=== PATIENT | female | born 1980 | race Caucasian/White ===

== ENCOUNTER 2018-02-04 14:28 | Emergency (ER) | payer SELFPAY ==
[2018-02-04] MEDS ORDERED: DIPHENHYDRAMINE 25 MG TAB/CAP ONE (15:16)
[2018-02-04] MEDS ORDERED: FAMOTIDINE 20 MG TAB ONE (15:17)
[2018-02-04] MEDS ORDERED: predniSONE 20 MG TAB ONE (15:17)
--- NOTE | 2018-02-04 15:28 | EDPHYS ---
Physician Documentation [facility] Name: Rachana Padilla Age: 37 yrs Sex: Female : 1980 Arrival Date: 02/04/2018 Time: 14:33 Bed 14 Private MD: ED Physician Mauro French HPI: 02/04 14:48 This 37 yrs old Female presents to ER via Ambulatory with complaints of kb Insect Bite. 14:48 the patient presents with a swollen area of the anterior aspect of left shoulder. kb Description: erythematous, hot, swollen. Onset: The symptoms/episode began/occurred at 13:00. Possible cause(s): insect sting. Associated signs and symptoms: Pertinent positives: erythema, swelling, Pertinent negatives: discharge, drainage, foreign body sensation, fever, headache, nausea, shortness of breath, vomiting. Modifying factors: the symptoms are alleviated by nothing, the symptoms are aggravated by nothing. Severity of symptoms: At their worst the symptoms were moderate, in the emergency department the symptoms have improved, moderately. The patient has not experienced similar symptoms in the past. The patient has not recently seen a physician. Pt states she got into her car and felt like she got bit or stung by something on her left upper arm. Had redness, swelling, warmth and pain to entire arm after that. States pain has resolved since then. Redness, swelling and warmth have decreased moderately. . 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 - Social history:: Smoking status: Patient uses tobacco products, smokes one pack cigarettes per day. Patient uses alcohol, only on a social basis. - Ebola Screening: : Patient negative for fever greater than or equal to 101.5 degrees Fahrenheit, and additional compatible Ebola Virus Disease symptoms Patient denies exposure to infectious person Patient denies travel to an Ebola-affected area in the 21 days before illness onset. ROS: 14:46 Constitutional: Negative for fever, chills, and weight loss, Cardiovascular: Negative kb for chest pain, palpitations, and edema, Respiratory: Negative for shortness of breath, cough, wheezing, and pleuritic chest pain, Abdomen/GI: Negative for abdominal pain, nausea, vomiting, diarrhea, and constipation, Back: Negative for injury and pain, : Negative for injury, bleeding, discharge, and swelling, MS/Extremity: Negative for injury and deformity, Neuro: Negative for headache, weakness, numbness, tingling, and seizure. 14:46 Skin: Positive for erythema, swelling, of the anterior aspect of left shoulder. Exam: 14:46 Constitutional: This is a well developed, well nourished patient who is awake, alert, kb and in no acute distress. Head/Face: Normocephalic, atraumatic. Chest/axilla: Normal chest wall appearance and motion. Nontender with no deformity. No lesions are appreciated. Cardiovascular: Regular rate and rhythm with a normal S1 and S2. No gallops, murmurs, or rubs. Normal PMI, no JVD. No pulse deficits. Respiratory: Lungs have equal breath sounds bilaterally, clear to auscultation and percussion. No rales, rhonchi or wheezes noted. No increased work of breathing, no retractions or nasal flaring. Abdomen/GI: Soft, non-tender, with normal bowel sounds. No distension or tympany. No guarding or rebound. No evidence of tenderness throughout. MS/ Extremity: Pulses equal, no cyanosis. Neurovascular intact. Full, normal range of motion. Neuro: Awake and alert, GCS 15, oriented to person, place, time, and situation. Cranial nerves II-XII grossly intact. Motor strength 5/5 in all extremities. Sensory grossly intact. Cerebellar exam normal. Normal gait. 14:46 Skin: Appearance: normal except for affected area, Color: erythematous, Temperature: hot, swelling, noted on the anterior aspect of left shoulder, that are mild. Vital Signs: 14:37 BP 127 / 84; Pulse 90; Resp 18; Temp 97.4(TE); Pulse Ox 100% on R/A; Weight 71.21 kg; hj Height 5 ft. 6 in. (167.64 cm); Pain 5/10; 14:37 Body Mass Index 25.34 (71.21 kg, 167.64 cm) MDM: 14:39 Patient medically screened. kb 14:47 Data reviewed: vital signs, nurses notes. Data interpreted: Pulse oximetry: on room air kb is 100 %. Interpretation: normal. Counseling: I had a detailed discussion with the patient and/or guardian regarding: the historical points, exam findings, and any diagnostic results supporting the discharge/admit diagnosis, the need for outpatient follow up, a family practitioner, to return to the emergency department if symptoms worsen or persist or if there are any questions or concerns that arise at home. Administered Medications: 15:05 Drug: predniSONE 40 mg Route: PO; bp 15:35 Follow up: Response: Marked relief of symptoms bp 15:05 Drug: Pepcid 20 mg Route: PO; bp 15:34 Follow up: Response: Marked relief of symptoms bp 15:05 Drug: Benadryl 25 mg Route: PO; bp 15:33 Follow up: Response: No adverse reaction; Marked relief of symptoms bp Disposition: 02/05 07:07 Co-signature as Attending Physician, Mauro French MD I agree with the assessment and wilbur plan of care. Disposition: 02/04/18 15:27 Discharged to Home. Impression: Bitten or stung by nonvenomous insect and other nonvenomous arthropods. - Condition is Stable. - Discharge Instructions: Insect Bite, [id number]. - Prescriptions for Pepcid 20 mg Oral Tablet - take 1 tablet by ORAL route every 12 hours for 5 days; 10 tablet. Prednisone 20 mg Oral Tablet - take 1 tablet by ORAL route once daily for 5 days; 5 tablet. - Medication Reconciliation Form, Thank You Letter, Antibiotic Education, Prescription Opioid Use, Work release form form. - Follow up: Emergency Department; When: As needed; Reason: Worsening of condition. Follow up: Private Physician; When: 2 - 3 days; Reason: Recheck today's complaints, Continuance of care, Re-evaluation by your physician. Signatures: Margret Cervantes, NARDA-C SURGERY CONSULTANT-Mauro Reeves MD MD cha Joaquin, Henry, RN RN hj Peltier, Brian, RN RN bp Corrections: (The following items were deleted from the chart) 02/04 15:37 15:27 02/04/2018 15:27 Discharged to Home. Impression: Bitten or stung by nonvenomous bp insect and other nonvenomous arthropods. Condition is Stable. Discharge Instructions: Insect Bite, [id number]. Prescriptions for Pepcid 20 mg Oral Tablet - take 1 tablet by ORAL route every 12 hours for 5 days; 10 tablet, Prednisone 20 mg Oral Tablet - take 1 tablet by ORAL route once daily for 5 days; 5 tablet. and Forms are Medication Reconciliation Form, Thank You Letter, Antibiotic Education, Prescription Opioid Use. Follow up: Emergency Department; When: As needed; Reason: Worsening of condition. Follow up: Private Physician; When: 2 - 3 days; Reason: Recheck today's complaints, Continuance of care, Re-evaluation by your physician. kb
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
[2018-02-04 15:50] VITALS: BP 127/84; TEMP 97.4; O2SAT 100
== END 2018-02-04 15:37 | disposition home or self-care (01) ==
LOC: ER 14:28
DX: S40.262A Insect bite (nonvenomous) of left shoulder, initial encounter (principal); F17.210 Nicotine dependence, cigarettes, uncomplicated
CPT/HCPCS: 99283; J7512

== ENCOUNTER 2018-09-16 22:02 | Emergency (ER) | payer SELFPAY ==
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
[2018-09-16] MEDS ORDERED: HYDROCODONE/APAP 10/325 TAB ONE (23:33)
[2018-09-16] MEDS ORDERED: TETANUS & DIPHTHERIA TOX,ADULT 0.5 ML VIAL ONE (23:33)
[2018-09-17 04:57] VITALS: BP 125/89; TEMP 98.1; O2SAT 100
== END 2018-09-16 23:33 | disposition home or self-care (01) ==
LOC: ER 22:02
DX: L23.5 Allergic contact dermatitis due to other chemical products (principal); F17.210 Nicotine dependence, cigarettes, uncomplicated; Z23 Encounter for immunization
CPT/HCPCS: 90471; 90714; 99283

== ENCOUNTER 2019-01-05 05:08 | Emergency (ER) | payer SELFPAY ==
--- NOTE | 2019-01-05 06:32 | ER ---
Nurse's Notes [facility] Name: Rachana Padilla Age: 38 yrs Sex: Female : 1980 Arrival Date: 01/05/2019 Time: 05:09 Bed 19 Private MD: Diagnosis: Rash and other nonspecific skin eruption Presentation: 01/05 05:25 Presenting complaint: Patient states: "Since 2 weeks I've been having this generalized cc3 itchy rash all over my body. 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 I don't even remember changing detergents nor body soap to have this". Transition of care: patient was not received from another setting of care. Onset of symptoms was January 05, 2019. Risk Assessment: Do you want to hurt yourself or someone else? Patient reports no desire to harm self or others. Initial Sepsis Screen: Does the patient meet any 2 criteria? No. Patient's initial sepsis screen is negative. Does the patient have a suspected source of infection? No. Patient's initial sepsis screen is negative. Care prior to arrival: Medication(s) given: anti-itch topical creams. 05:25 Method Of Arrival: Ambulatory cc3 05:25 Acuity: ROMIE 4 cc3 Triage Assessment: 05:25 General: Appears in no apparent distress. comfortable, Behavior is calm, cooperative, cc3 appropriate for age. Pain: Denies pain. EENT: No signs and/or symptoms were reported regarding the EENT system. Neuro: Level of Consciousness is awake, alert, obeys commands, Oriented to person, place, time, situation, Appropriate for age. Cardiovascular: Denies chest pain, Capillary refill < 3 seconds Patient's skin is warm and dry. Respiratory: Airway is patent Respiratory effort is even, unlabored, Respiratory pattern is regular, symmetrical. GI: Abdomen is round non-distended. : No signs and/or symptoms were reported regarding the genitourinary system. Derm: Skin is intact, is healthy with good turgor, Skin is pink, warm \\T\\ dry. normal, Rash noted that is itchy, on generalized since 2 weeks. Musculoskeletal: Circulation, motion, and sensation intact. Range of motion: intact in all extremities. 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 - Social history:: Smoking status: Patient uses tobacco products, smokes one-half pack cigarettes per day. - Ebola Screening: : No symptoms or risks identified at this time. Screenin:25 Abuse screen: Denies threats or abuse. Denies injuries from another. Nutritional cc3 screening: No deficits noted. Tuberculosis screening: No symptoms or risk factors identified. Fall Risk Ambulatory Aid- None/Bed Rest/Nurse Assist (0 pts). Gait- Normal/Bed Rest/Wheelchair (0 pts) Mental Status- Oriented to own ability (0 pts). Assessment: 05:25 General: see triage assessment. cc3 06:57 Reassessment: Patient appears in no apparent distress at this time. Patient and/or cc3 family updated on plan of care and expected duration. Pain level reassessed. Patient is alert, oriented x 3, equal unlabored respirations, skin warm/dry/pink. SERVICES HOST Ayse discharged the patient home with prescriptions given. IV cannula removed and patient left Er vitally stable and ambulatory with her family. No valuables left in the patient's room. Patient denies pain at this time. Patient states feeling better. Patient states symptoms have improved. Vital Signs: 05:25 BP 110 / 77; Pulse 90; Resp 18 S; Temp 98.3(O); Pulse Ox 100% on R/A; Weight 69.4 kg cc3 (R); Height 5 ft. 6 in. (167.64 cm) (R); 05:25 Body Mass Index 24.69 (69.40 kg, 167.64 cm) cc3 ED Course: 05:09 Patient arrived in ED. ds1 05:22 Tegan Olmos is Primary Nurse. cc3 05:25 Patient has correct armband on for positive identification. Bed in low position. Call cc3 light in reach. Side rails up X 1. Pulse ox on. NIBP on. 05:25 Arm band placed on right wrist. Patient notified of wait time. cc3 05:38 Triage completed. cc3 05:59 Ulises Tavera NP is PHCP. pm1 05:59 Miguel Hummel MD is Attending Physician. pm1 06:35 Inserted saline lock: 20 gauge in left antecubital area, using aseptic technique. cc3 06:57 No provider procedures requiring assistance completed. IV discontinued, intact, cc3 bleeding controlled, No redness/swelling at site. Pressure dressing applied. Administered Medications: 06:40 CANCELLED (Other Intervention Used): Decadron 10 mg IM once cc3 06:40 Drug: Benadryl 25 mg Route: PO; cc3 06:57 Follow up: Response: No adverse reaction cc3 06:40 Drug: Pepcid 20 mg Route: PO; cc3 06:57 Follow up: Response: No adverse reaction cc3 06:45 Drug: Decadron - Dexamethasone 10 mg Route: IVP; Site: left antecubital; cc3 06:57 Follow up: Response: No adverse reaction; Marked relief of symptoms cc3 Outcome: 06:31 Discharge ordered by . pm1 06:57 Patient left the ED. cc3 06:57 Discharged to home ambulatory, with family. cc3 06:57 Condition: stable 06:57 Discharge instructions given to patient, family, Instructed on discharge instructions, follow up and referral plans. medication usage, Demonstrated understanding of instructions, follow-up care, medications, Prescriptions given X 3. Signatures: Annie Montiel ds1 Ulises Tavera NP SERVICES HOST pm1 Tegan Olmos cc3
--- NOTE | 2019-01-05 06:32 | EDPHYS ---
Physician Documentation [facility] Name: Rachana Padilla Age: 38 yrs Sex: Female : 1980 Arrival Date: 01/05/2019 Time: 05:09 Bed 19 Private MD: ED Physician Miguel Hummel HPI: 01/05 06:30 This 38 yrs old Female presents to ER via Ambulatory with complaints of Rash. pm1 06:30 The patient's rash thought to be caused by Contact allergy. The rash is located on the pm1 body diffusely. The rash can be described as macular, papular. Onset: The symptoms/episode began/occurred 1 week(s) ago. Associated signs and symptoms: Pertinent positives: itching, Pertinent negatives: burning sensation, difficulty breathing, fever, nausea, swelling of lips, swelling of throat, swelling of tongue, vomiting, wheezing. Severity of symptoms: in the emergency department the symptoms are worse. Treatment given at home: None. The patient has not experienced similar symptoms in the past. The patient has not recently seen a physician. 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 - Social history:: Smoking status: Patient uses tobacco products, smokes one-half pack cigarettes per day. - Ebola Screening: : No symptoms or risks identified at this time. ROS: 06:30 Constitutional: Negative for fever, chills, and weight loss, Eyes: Negative for injury, pm1 pain, redness, and discharge, ENT: Negative for injury, pain, and discharge, Neck: Negative for injury, pain, and swelling, Cardiovascular: Negative for chest pain, palpitations, and edema, Respiratory: Negative for shortness of breath, cough, wheezing, and pleuritic chest pain, Abdomen/GI: Negative for abdominal pain, nausea, vomiting, diarrhea, and constipation, Back: Negative for injury and pain, : Negative for injury, bleeding, discharge, and swelling, MS/Extremity: Negative for injury and deformity. 06:30 Neuro: Negative for headache, weakness, numbness, tingling, and seizure. 06:30 Skin: Positive for rash, diffusely. Exam: 06:30 Constitutional: This is a well developed, well nourished patient who is awake, alert, pm1 and in no acute distress. Head/Face: Normocephalic, atraumatic. Eyes: Pupils equal round and reactive to light, extra-ocular motions intact. Lids and lashes normal. Conjunctiva and sclera are non-icteric and not injected. Cornea within normal limits. Periorbital areas with no swelling, redness, or edema. ENT: Nares patent. No nasal discharge, no septal abnormalities noted. Tympanic membranes are normal and external auditory canals are clear. Oropharynx with no redness, swelling, or masses, exudates, or evidence of obstruction, uvula midline. Mucous membranes moist. Neck: Trachea midline, no thyromegaly or masses palpated, and no cervical lymphadenopathy. Supple, full range of motion without nuchal rigidity, or vertebral point tenderness. No Meningismus. Chest/axilla: Normal chest wall appearance and motion. Nontender with no deformity. No lesions are appreciated. Cardiovascular: Regular rate and rhythm with a normal S1 and S2. No gallops, murmurs, or rubs. Normal PMI, no JVD. No pulse deficits. Respiratory: Lungs have equal breath sounds bilaterally, clear to auscultation and percussion. No rales, rhonchi or wheezes noted. No increased work of breathing, no retractions or nasal flaring. Back: No spinal tenderness. No costovertebral tenderness. Full range of motion. 06:30 MS/ Extremity: Pulses equal, no cyanosis. Neurovascular intact. Full, normal range of motion. 06:30 Skin: Appearance: normal except for affected area, consistent with contact dermatitis, and is diffusely located. 06:30 Neuro: Orientation: is normal, Motor: is normal, moves all fours, Sensation: is normal, no obvious gross deficits. Vital Signs: 05:25 BP 110 / 77; Pulse 90; Resp 18 S; Temp 98.3(O); Pulse Ox 100% on R/A; Weight 69.4 kg cc3 (R); Height 5 ft. 6 in. (167.64 cm) (R); 05:25 Body Mass Index 24.69 (69.40 kg, 167.64 cm) cc3 MDM: 06:00 Patient medically screened. pm1 06:30 Data reviewed: vital signs. Data interpreted: Pulse oximetry: on room air is 100 %. pm1 Interpretation: normal. Counseling: I had a detailed discussion with the patient and/or guardian regarding: the historical points, exam findings, and any diagnostic results supporting the discharge/admit diagnosis, the need for outpatient follow up, to return to the emergency department if symptoms worsen or persist or if there are any questions or concerns that arise at home. Administered Medications: 06:40 CANCELLED (Other Intervention Used): Decadron 10 mg IM once cc3 06:40 Drug: Benadryl 25 mg Route: PO; cc3 06:57 Follow up: Response: No adverse reaction cc3 06:40 Drug: Pepcid 20 mg Route: PO; cc3 06:57 Follow up: Response: No adverse reaction cc3 06:45 Drug: Decadron - Dexamethasone 10 mg Route: IVP; Site: left antecubital; cc3 06:57 Follow up: Response: No adverse reaction; Marked relief of symptoms cc3 Disposition: 07:06 Co-signature as Attending Physician, Miguel Hummel MD. [place] Disposition: 01/05/19 06:31 Discharged to Home. Impression: Rash and other nonspecific skin eruption. - Condition is Stable. - Discharge Instructions: Contact Dermatitis, Rash. - Prescriptions for Benadryl 25 mg Oral Capsule - take 1 capsule by ORAL route every 6 hours As needed; 30 tablet. Pepcid 20 mg Oral Tablet - take 1 tablet by ORAL route every 12 hours for 10 days; 20 tablet. Medrol ([place]iff[place]) 4 mg Oral Tablets, Dose Pack - take 1 tablet by ORAL route as directed - follow package instructions; 1 packet. - Medication Reconciliation Form, Thank You Letter, Antibiotic Education, Prescription Opioid Use, Work release form form. - Follow up: Emergency Department; When: As needed; Reason: Worsening of condition. Follow up: Private Physician; When: 2 - 3 days; Reason: Recheck today's complaints, Continuance of care, Re-evaluation by your physician. - Problem is new. - Symptoms have improved. Signatures: Miguel Hummel MD MD pkUlises Hwang, TOOL PROGRAMMER TOOL PROGRAMMER pm1 Tegan Olmos cc3 Corrections: (The following items were deleted from the chart) 06:40 06:30 Decadron 10 mg IM once ordered. pm1 cc3 06:57 06:31 01/05/2019 06:31 Discharged to Home. Impression: Rash and other nonspecific skin cc3 eruption. Condition is Stable. Forms are Medication Reconciliation Form, Thank You Letter, Antibiotic Education, Prescription Opioid Use. Follow up: Emergency Department; When: As needed; Reason: Worsening of condition. Follow up: Private Physician; When: 2 - 3 days; Reason: Recheck today's complaints, Continuance of care, Re-evaluation by your physician. Problem is new. Symptoms have improved. pm1
[2019-01-05] MEDS ORDERED: dexAMETHasone 10 MG/ML VIAL ONE (06:39)
[2019-01-05] MEDS ORDERED: DIPHENHYDRAMINE 25 MG TAB/CAP ONE (06:39)
[2019-01-05] MEDS ORDERED: FAMOTIDINE 20 MG TAB ONE (06:40)
[2019-01-05 07:59] VITALS: BP 110/77; TEMP 98.3; O2SAT 100
== END 2019-01-05 06:57 | disposition home or self-care (01) ==
LOC: ER 05:08
DX: R21 Rash and other nonspecific skin eruption (principal)
CPT/HCPCS: 96374; 99284; J1100

== ENCOUNTER 2019-06-16 14:07 | Emergency (ER) | payer SELFPAY ==
[2019-06-16] MEDS ORDERED: LIDOCAINE 1% W/EPI 1:100,000 MDV 20 ML VIAL ONE (15:35)
[2019-06-16] MEDS ORDERED: BUPIVACAINE 0.5% PF 10 ML VIAL ONE (15:35)
--- NOTE | 2019-06-16 16:01 | ER ---
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 It's been ca1 going on for about a month now. Denies fever. I also have cold sores on my lip twice in a month now. Transition of care: patient was not received from another setting of care. Onset of symptoms was June 16, 2019. Risk Assessment: Do you want to hurt yourself or someone else? Patient reports no desire to harm self or others. Initial Sepsis Screen: Does the patient meet any 2 criteria? No. Patient's initial sepsis screen is negative. Does the patient have a suspected source of infection? No. Patient's initial sepsis screen is negative. Care prior to arrival: None. 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 - Coronavirus screen:: The patient has NOT traveled to [place] in the past 14 days. The patient has NOT had contact with known/suspected case of Coronavirus?. - Social history:: Smoking status: Patient reports the use of cigarette tobacco products, smokes one pack cigarettes per day. - Ebola Screening: : Patient negative for fever greater than or equal to 101.5 degrees Fahrenheit, and additional compatible Ebola Virus Disease symptoms Patient denies exposure to infectious person Patient denies travel to an Ebola-affected area in the 21 days before illness onset No symptoms or risks identified at this time. Screenin:10 Abuse screen: Denies threats or abuse. Nutritional screening: No deficits noted. rb1 Tuberculosis screening: No symptoms or risk factors identified. Fall Risk None identified. Assessment: 15:10 General: Appears in no apparent distress. comfortable, Behavior is calm, cooperative, rb1 Denies fever. Pain: Complains of pain in left buttock Pain currently is 4 out of 10 on a pain scale. Pain began x one month. Neuro: Level of Consciousness is awake, alert, obeys commands, Oriented to person, place, time, situation. Cardiovascular: Capillary refill < 3 seconds is brisk in bilateral fingers. Respiratory: Airway is patent Respiratory effort is even, unlabored, Respiratory pattern is regular, symmetrical. GI: No signs and/or symptoms were reported involving the gastrointestinal system. : No signs and/or symptoms were reported regarding the genitourinary system. Derm: Skin is pink, warm \T\ dry. 16:10 Reassessment: Patient appears in no apparent distress at this time. No changes from rb1 previously documented assessment. Vital Signs: 14:50 BP 128 / 78; Pulse 71; Resp 17 S; Temp 97.4(TE); Pulse Ox 100% on R/A; Weight 76.2 kg ca1 (R); Height 5 ft. 6 in. (167.64 cm) (R); 15:45 BP 124 / 76; Pulse 68; Resp 17; Pulse Ox 99% on R/A; rb1 14:50 Body Mass Index 27.12 (76.20 kg, 167.64 cm) ca1 ED Course: 14:08 Patient arrived in ED. ag5 14:45 Triage completed. ca1 14:50 Arm band placed on right wrist. ca1 15:09 Mauro Lay PA is PHCP. cp 15:09 Hakan Hamilton MD is Attending Physician. cp 15:10 Patient has correct armband on for positive identification. Bed in low position. Call rb1 light in reach. Side rails up X 1. Pulse ox on. NIBP on. 15:15 Alem Belle, RN is Primary Nurse. ph 15:28 Micaela Restrepo, DESTINEY is Primary Nurse. rb1 16:30 No provider procedures requiring assistance completed. Patient did not have IV access rb1 during this emergency room visit. Administered Medications: 15:48 Drug: Lidocaine-Epinephrine -1%: (1:100,000) 10 ml Volume: 20 ml; Route: Infiltration; rb1 15:48 Drug: Marcaine (0.5 %) 10 ml Volume: 10 ml; Route: Infiltration; rb1 Outcome: 16:00 Discharge ordered by . cp 16:30 Discharged to home ambulatory. rb1 16:30 Condition: stable 16:30 Discharge instructions given to patient, Instructed on discharge instructions, follow up and referral plans. medication usage, Demonstrated understanding of instructions, follow-up care, medications, Prescriptions given X 2. 16:33 Patient left the ED. rb1 Signatures: Alem Belle RN RN ph Rosanne, Mauro, Micaela Jurado cp, RN RN rb1 Sharri Muñoz RN RN ca1 Wilbert Flowers agDagoberto
--- NOTE | 2019-06-16 16:02 | EDPHYS ---
Physician Documentation [facility] Name: Rachana Padilla Age: 38 yrs Sex: Female : 1980 Arrival Date: 06/16/2019 Time: 14:08 Bed 20 Private MD: ED Physician Hakan Hamilton HPI: 06/16 15:19 This 38 yrs old Female presents to ER via Ambulatory with complaints of cp Buttock Mass. 15:20 The patient presents with an abscess of the left buttock. cp 15:20 Onset: The symptoms/episode began/occurred 1 month(s) ago. cp 15:20 Associated signs and symptoms: Pertinent negatives: discharge, drainage, fever. 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 - Coronavirus screen:: The patient has NOT traveled to [place] in the past 14 days. The patient has NOT had contact with known/suspected case of Coronavirus?. - Social history:: Smoking status: Patient reports the use of cigarette tobacco products, smokes one pack cigarettes per day. - Ebola Screening: : Patient negative for fever greater than or equal to 101.5 degrees Fahrenheit, and additional compatible Ebola Virus Disease symptoms Patient denies exposure to infectious person Patient denies travel to an Ebola-affected area in the 21 days before illness onset No symptoms or risks identified at this time. ROS: 15:25 Constitutional: Negative for body aches, chills, fever, poor PO intake. cp 15:25 Eyes: Negative for injury, pain, redness, and discharge. cp 15:25 Cardiovascular: Negative for chest pain. 15:25 Respiratory: Negative for cough, shortness of breath, wheezing. 15:25 Abdomen/GI: Negative for abdominal pain, nausea, vomiting, and diarrhea. 15:25 Skin: Positive for abscess, of the left buttock. 15:25 All other systems are negative. Exam: 15:35 Constitutional: The patient appears in no acute distress, alert, awake, non-toxic, well cp developed, well nourished. 15:35 Head/face: Noted is rash, of the mouth. cp 15:35 Eyes: Periorbital structures: appear normal, Conjunctiva: normal, no exudate, no injection, Lids and lashes: appear normal, bilaterally. 15:35 ENT: External ear(s): are unremarkable, Nose: is normal, Mouth: Lips: moist, Oral mucosa: pink and intact, moist, Posterior pharynx: Airway: no evidence of obstruction, patent. 15:35 Chest/axilla: Inspection: normal. 15:35 Cardiovascular: Rate: normal. 15:35 Respiratory: the patient does not display signs of respiratory distress, Respirations: normal, no use of accessory muscles, labored breathing, is not present. 15:35 Abdomen/GI: Exam negative for discomfort, distension, guarding, Inspection: abdomen appears normal. 15:35 Skin: abscess, that is small, of the left buttock, with fluctuance, that is mild. Vital Signs: 14:50 BP 128 / 78; Pulse 71; Resp 17 S; Temp 97.4(TE); Pulse Ox 100% on R/A; Weight 76.2 kg ca1 (R); Height 5 ft. 6 in. (167.64 cm) (R); 15:45 BP 124 / 76; Pulse 68; Resp 17; Pulse Ox 99% on R/A; rb1 14:50 Body Mass Index 27.12 (76.20 kg, 167.64 cm) ca1 Procedures: 15:55 I \T\ D: Incision and drainage was performed for an abscess of the left buttock Prepped cp with Betadine, Anesthetized with 5 ccs of mixture 1% lidocaine with epi and 0.5% marcaine. Incised with #11 blade. Drained small amount purulent fluid. bloody fluid. Packed with iodoform gauze, Dressing: sterile 4x4 gauze, the patient tolerated the procedure well. MDM: 15:15 Patient medically screened. cp 15:30 Differential diagnosis: abscess, cellulitis, insect bite. cp 16:00 Data reviewed: vital signs, nurses notes, and as a result, I will discharge patient. cp 16:00 Counseling: I had a detailed discussion with the patient and/or guardian regarding: the cp historical points, exam findings, and any diagnostic results supporting the discharge/admit diagnosis, to return to the emergency department if symptoms worsen or persist or if there are any questions or concerns that arise at home. 16:00 Response to treatment: the patient's symptoms have markedly improved after treatment, cp and as a result, I will discharge patient. 06/16 15:19 Order name: I\T\D Setup; Complete Time: 15:36 cp Administered Medications: 15:48 Drug: Lidocaine-Epinephrine -1%: (1:100,000) 10 ml Volume: 20 ml; Route: Infiltration; rb1 15:48 Drug: Marcaine (0.5 %) 10 ml Volume: 10 ml; Route: Infiltration; rb1 Disposition: 16:45 Chart complete. cp 17:33 Co-signature as Attending Physician, Hakan Hamilton MD I agree with the assessment and kdr plan of care. Disposition: 06/16/19 16:00 Discharged to Home. 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 - Condition is Stable. - Discharge Instructions: Skin Abscess, Cold Sore, Incision and Drainage. - Prescriptions for Bactrim DS 800- 160 mg Oral Tablet - take 1 tablet by ORAL route every 12 hours for 7 days; 14 tablet. Acyclovir 400 mg Oral Tablet - take 1 tablet by ORAL route every 8 hours for 5 days; 15 tablet. - Medication Reconciliation Form, Thank You Letter, Antibiotic Education, Prescription Opioid Use, Work release form form. - Follow up: Private Physician; When: 48 Hours; Reason: Wound Recheck. - Problem is new. - Symptoms have improved. Signatures: Hakan Hamilton MD MD [facility] Mauro Lay PA PA cp Micaela Restrepo, RN RN rb1 Sharri Muñoz RN RN ca1 Corrections: (The following items were deleted from the chart) 16:02 16:00 06/16/2019 16:00 Discharged to Home. Impression: Cutaneous abscess of buttock. cp Condition is Stable. Discharge Instructions: Cold Sore. Forms are Medication Reconciliation Form, Thank You Letter, Antibiotic Education, Prescription Opioid Use. Follow up: Private Physician; When: 48 Hours; Reason: Wound Recheck. Problem is new. Symptoms have improved. cp 16:33 16:02 06/16/2019 16:00 Discharged to Home. 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 Condition is Stable. Discharge Instructions: Cold Sore, Skin Abscess, Incision and Drainage. Prescriptions for Bactrim DS 800-160 mg Oral Tablet - take 1 tablet by ORAL route every 12 hours for 7 days; 14 tablet. and Forms are Medication Reconciliation Form, Thank You Letter, Antibiotic Education, Prescription Opioid Use. Follow up: Private Physician; When: 48 Hours; Reason: Wound Recheck. Problem is new. Symptoms have improved. cp
[2019-06-17 21:43] VITALS: TEMP 97.4
[2019-06-17 21:45] VITALS: BP 124/76; O2SAT 99
== END 2019-06-16 16:33 | disposition home or self-care (01) ==
LOC: ER 14:07
PROC: 0J990ZZ Drainage of Buttock Subcutaneous Tissue and Fascia, Open Approach (ICD-10-PCS; principal; 2019-06-16)
DX: L02.31 Cutaneous abscess of buttock (principal); B00.9 Herpesviral infection, unspecified; F17.210 Nicotine dependence, cigarettes, uncomplicated; Z88.6 Allergy status to analgesic agent
CPT/HCPCS: 99283

== ENCOUNTER 2020-06-24 01:49 | Emergency (ER) | payer SELFPAY ==
--- NOTE | 2020-06-24 03:34 | ER ---
Nurse's Notes [facility] Name: Rachana Padilla Age: 39 yrs Sex: Female : 1980 Arrival Date: 06/24/2020 Time: 01:53 Bed 5 Private MD: Diagnosis: Pharyngitis Presentation: 06/24 02:01 Chief complaint: Patient states: I have had a soar throat for one week. I was trying to jb4 treat it with DayQuil, Nightquil, and ibuprofen. It has progressively gotten worse over the last 2 days. I last too DayQuil at 0100. Coronavirus screen: Client denies travel out of the [place] in the last 14 days. At this time, the client does not indicate any symptoms associated with coronavirus-19. Ebola Screen: Patient negative for fever greater than or equal to 101.5 degrees Fahrenheit, and additional compatible Ebola Virus Disease symptoms. Initial Sepsis Screen: Does the patient meet any 2 criteria? No. Patient's initial sepsis screen is negative. Does the patient have a suspected source of infection? No. Patient's initial sepsis screen is negative. Risk Assessment: Do you want to hurt yourself or someone else? Patient reports no desire to harm self or others. Onset of symptoms was June 17, 2020. Transition of care: patient was not received from another setting of care. 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 - Social history:: Smoking status: Patient reports the use of cigarette tobacco products, smokes one pack cigarettes per day. Patient/guardian denies using alcohol, street drugs. Screenin:12 Abuse screen: Denies threats or abuse. Denies injuries from another. Nutritional rr5 screening: No deficits noted. Tuberculosis screening: No symptoms or risk factors identified. Fall Risk None identified. Total Magdaleno Fall Scale indicates No Risk (0-24 pts). Assessment: 02:11 General: Appears in no apparent distress. uncomfortable, Behavior is calm, cooperative, rr5 appropriate for age. Pain: Complains of pain in throat Pain currently is 3 out of 10 on a pain scale. Quality of pain is described as aching, Pain began gradually, Is intermittent. Neuro: Level of Consciousness is awake, alert, obeys commands, Oriented to person, place, time, situation. Cardiovascular: Capillary refill < 3 seconds Patient's skin is warm and dry. Respiratory: Airway is patent Respiratory effort is even, unlabored, Respiratory pattern is regular, symmetrical, GI: No signs and/or symptoms were reported involving the gastrointestinal system. : No signs and/or symptoms were reported regarding the genitourinary system. EENT: Throat with gag reflex present, Reports pain when swallowing Pain is 3 out of 10 on a pain scale. Derm: Skin is intact, is healthy with good turgor, Skin is pink, warm \T\ dry. Musculoskeletal: Capillary refill < 3 seconds. 03:11 Reassessment: Patient appears in no apparent distress at this time. Patient and/or mg2 family updated on plan of care and expected duration. Pain level reassessed. Patient is alert, oriented x 3, equal unlabored respirations, skin warm/dry/pink. 03:36 Reassessment: Patient appears in no apparent distress at this time. Patient is alert, rr5 oriented x 3, equal unlabored respirations, skin warm/dry/pink. discharge instruction given and explained without complaints made. Vital Signs: 02:01 BP 130 / 91; Pulse 92; Resp 18; Temp 97.5(TE); Pulse Ox 98% on R/A; Weight 78.47 kg jb4 (R); Height 5 ft. 6 in. (167.64 cm) (R); Pain 3/10; 03:36 BP 113 / 75; Pulse 85; Resp 16; Pulse Ox 99% ; rr5 02:01 Body Mass Index 27.92 (78.47 kg, 167.64 cm) jb4 ED Course: 01:53 Patient arrived in ED. cf2 02:01 Timothy Patel MD is Attending Physician. mh7 02:05 Triage completed. jb4 02:06 Arm band placed on right wrist. jb4 02:10 Elias Huizar RN is Primary Nurse. rr5 02:12 Patient has correct armband on for positive identification. Bed in low position. Call rr5 light in reach. Pulse ox on. NIBP on. 02:24 No provider procedures requiring assistance completed. Strep swab sent to lab. Patient mg2 did not have IV access during this emergency room visit. Administered Medications: No medications were administered Outcome: 03:32 Discharge ordered by . violette 03:34 Discharged to home ambulatory. mg2 03:34 Condition: stable 03:34 Discharge instructions given to patient, Instructed on discharge instructions, follow up and referral plans. medication usage, Demonstrated understanding of instructions, follow-up care, medications, Prescriptions given X 1. 03:37 Patient left the ED. rr5 Signatures: John Mancia RN RN jb4 Rk Locke RN RN mg2 Elias Huizar RN RN rr5 Tanner Alicia cf2 Timothy Patel MD MD 7
--- NOTE | 2020-06-24 03:34 | EDPHYS ---
Physician Documentation [facility] Name: Rachana Padilla Age: 39 yrs Sex: Female : 1980 Arrival Date: 06/24/2020 Time: 01:53 Bed 5 Private MD: ED Physician Timothy Patel HPI: 06/24 02:41 This 39 yrs old Female presents to ER via Ambulatory with complaints of Sore mh7 Throat, Swelling in Throat. 02:41 The patient presents with sore throat. The patient describes throat pain as mh7 intermittent. Onset: The symptoms/episode began/occurred 1 week(s) ago. Severity of symptoms: At their worst the symptoms were moderate, 2 day(s) ago, in the emergency department the symptoms are unchanged. Modifying factors: The symptoms are alleviated by over the counter medications, NSAIDs, the symptoms are aggravated by nothing, Denies contact with similarly ill indivduals. 02:47 Associated signs and symptoms: Pertinent positives: earache, Sore throat Pertinent mh7 negatives chest pain, chills, cough, diarrhea, dysphagia, fever, flu-like symptoms, headache, nausea, rhinorrhea, shortness of breath, vomiting. 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 - Social history:: Smoking status: Patient reports the use of cigarette tobacco products, smokes one pack cigarettes per day. Patient/guardian denies using alcohol, street drugs. ROS: 02:47 Constitutional: Negative for fever, chills, and weight loss, Eyes: Negative for injury, mh7 pain, redness, and discharge, Neck: Negative for injury, pain, and swelling, Cardiovascular: Negative for chest pain, palpitations, and edema, Respiratory: Negative for shortness of breath, cough, wheezing, and pleuritic chest pain, Abdomen/GI: Negative for abdominal pain, nausea, vomiting, diarrhea, and constipation, Back: Negative for injury and pain, : Negative for injury, bleeding, discharge, and swelling, MS/Extremity: Negative for injury and deformity, Skin: Negative for injury, rash, and discoloration, Neuro: Negative for headache, weakness, numbness, tingling, and seizure, Psych: Negative for depression, anxiety, suicide ideation, homicidal ideation, and hallucinations, Allergy/Immunology: Negative for hives, rash, and allergies, Endocrine: Negative for neck swelling, polydipsia, polyuria, polyphagia, and marked weight changes, Hematologic/Lymphatic: Negative for swollen nodes, abnormal bleeding, and unusual bruising. Exam: 02:47 Constitutional: This is a well developed, well nourished patient who is awake, alert, mh7 and in no acute distress. Head/Face: Normocephalic, atraumatic. Eyes: Pupils equal round and reactive to light, extra-ocular motions intact. Lids and lashes normal. Conjunctiva and sclera are non-icteric and not injected. Cornea within normal limits. Periorbital areas with no swelling, redness, or edema. 02:47 Neck: Trachea midline, no thyromegaly or masses palpated, and no cervical lymphadenopathy. Supple, full range of motion without nuchal rigidity, or vertebral point tenderness. No Meningismus. Chest/axilla: Normal chest wall appearance and motion. Nontender with no deformity. No lesions are appreciated. Cardiovascular: Regular rate and rhythm with a normal S1 and S2. No gallops, murmurs, or rubs. Normal PMI, no JVD. No pulse deficits. Respiratory: Lungs have equal breath sounds bilaterally, clear to auscultation and percussion. No rales, rhonchi or wheezes noted. No increased work of breathing, no retractions or nasal flaring. Abdomen/GI: Soft, non-tender, with normal bowel sounds. No distension or tympany. No guarding or rebound. No evidence of tenderness throughout. Back: No spinal tenderness. No costovertebral tenderness. Full range of motion. Skin: Warm, dry with normal turgor. Normal color with no rashes, no lesions, and no evidence of cellulitis. MS/ Extremity: Pulses equal, no cyanosis. Neurovascular intact. Full, normal range of motion. Neuro: Awake and alert, GCS 15, oriented to person, place, time, and situation. Cranial nerves II-XII grossly intact. Motor strength 5/5 in all extremities. Sensory grossly intact. Cerebellar exam normal. Normal gait. Psych: Awake, alert, with orientation to person, place and time. Behavior, mood, and affect are within normal limits. 02:47 ENT: External ear(s): are unremarkable, Ear canal(s): are normal, clear, TM's: are normal, Nose: is normal, Mouth: is normal, Posterior pharynx: Airway: normal, Tonsils: are normal in appearance, Uvula: normal, swelling, is not appreciated, erythema, that is mild, exudate, is not appreciated, peritonsillar mass, is not appreciated, pooling of secretions, is not appreciated, Dental exam: normal, Voice: is normal, Breath odor: is normal. Vital Signs: 02:01 BP 130 / 91; Pulse 92; Resp 18; Temp 97.5(TE); Pulse Ox 98% on R/A; Weight 78.47 kg jb4 (R); Height 5 ft. 6 in. (167.64 cm) (R); Pain 3/10; 03:36 BP 113 / 75; Pulse 85; Resp 16; Pulse Ox 99% ; rr5 02:01 Body Mass Index 27.92 (78.47 kg, 167.64 cm) jb4 MDM: 03:30 Differential diagnosis: bronchitis, laryngitis, Mycoplasma Pharyngitis pharyngitis, mh7 tonsillitis, upper respiratory infection, uvulitis, viral syndrome. Data reviewed: vital signs, nurses notes, lab test result(s), strep. Data interpreted: Pulse oximetry: on room air is 98 %. Interpretation: normal. Counseling: I had a detailed discussion with the patient and/or guardian regarding: the historical points, exam findings, and any diagnostic results supporting the discharge/admit diagnosis, the presence of at least one elevated blood pressure reading (>120/80) during this emergency department visit, lab results, the need for outpatient follow up, to return to the emergency department if symptoms worsen or persist or if there are any questions or concerns that arise at home. Response to treatment: the patient's symptoms have markedly improved after treatment. 03:32 Patient medically screened. [facility] 06/24 02:15 Order name: Rapid Strep; Complete Time: 03:22 [facility] 06/24 02:43 Order name: Throat Culture EDMS Administered Medications: No medications were administered Disposition: 06/24/20 03:32 Discharged to Home. Impression: Pharyngitis. - Condition is Stable. - Discharge Instructions: Pharyngitis, Brgm-ro-Vhax. - Prescriptions for Amoxicillin 500 mg Oral Capsule - take 1 capsule by ORAL route every 8 hours for 10 days; 30 tablet. - Medication Reconciliation Form, Thank You Letter, Antibiotic Education, Prescription Opioid Use form. - Follow up: Private Physician; When: 1 - 2 days; Reason: Worsening of condition, Recheck today's complaints, Continuance of care, Re-evaluation by your physician. - Problem is an ongoing problem. - Symptoms have improved. Signatures: Dispatcher [employer] EDMS John Mancia RN RN jb4 Elias Huizar RN RN rr5 Timothy Patel MD MD mh7 Corrections: (The following items were deleted from the chart) 03:37 03:32 06/24/2020 03:32 Discharged to Home. Impression: Pharyngitis. Condition is rr5 Stable. Forms are Medication Reconciliation Form, Thank You Letter, Antibiotic Education, Prescription Opioid Use. Follow up: Private Physician; When: 1 - 2 days; Reason: Worsening of condition, Recheck today's complaints, Continuance of care, Re-evaluation by your physician. Problem is an ongoing problem. Symptoms have improved. mh7
[2020-06-24 03:46] VITALS: BP 113/75; O2SAT 99
[2020-06-24 03:47] VITALS: TEMP 97.5
== END 2020-06-24 03:37 | disposition home or self-care (01) ==
LOC: ER 01:49
DX: J02.9 Acute pharyngitis, unspecified (principal); F32.9 Major depressive disorder, single episode, unspecified; F17.210 Nicotine dependence, cigarettes, uncomplicated; Z88.6 Allergy status to analgesic agent
CPT/HCPCS: 87070; 87081; 99283

== ENCOUNTER 2021-08-08 14:49 | Emergency (ER) | payer SELFPAY ==
--- OUTSIDE RECORDS SUMMARY | 2021-08-08 14:51 | XMS REPORT | Continuity of Care Document ---
:1980 Author Organization [facility] t Address [address] [place] [address] Care Team Providers Name Role Phone Unavailable Unavailable Unavailable Problems This patient has no known problems. Allergies, Adverse Reactions, Alerts This patient has no known allergies or adverse reactions. Medications This patient has no known medications. Procedures This patient has no known procedures. Results Test Description Test Time Test Comments Results Result Comments Source SARS-CoV-2 (COVID-19), RT-PCR/TMA 2021-05-24 15:37:50 Test Item Value Reference Range Interpretation Comme nts SARS-CoV-2 INTERPRETATION POSITIVE SEE NOTE A S ARS-CoV-2 RNA DETECTEDPositive (test code = 93082) results are indicative of the presence of CYNTHIA S-CoV-2 RNA;clinical co rrelation with patient history and other diagnosticinfor mation is necessary to de termine patient infection statu s.Positive results do not rule out bacterial infection or co -infectionwith other viruses. Positive and negative predic tive values oftesting are h ighly dependent on prevalence. SOURCE (test code = 28273) NASOPHARYNGEAL Note: Methodology is Braulio Laura Real-Time RT-PC R. The expected result or ref erence range is NEGATIVE (Not D etected). For more information reg arding COVID-19 testing to incl ude clinicalinforma tion, methodology detail, intende d use, FDA authorization a ndrecommended fact sheets for gonzalez ents or healthcare providers, see NewTest Announcement: S ARS-CoV-2 (COVID-19) by N AAT at URL below (note,fact shee ts are provided by method given in report:https:// www.Vidiowiki/cl inicians/client -communications/ Alternatively, see downloadable PDF fact sheet at:https://www. Theatrics.Mygistics/COVID- 19-RT-PCR UNLESS OTHERWISE INDICATED, ALL TESTING PERFORMED [facility]. [address] [place] [address] 4 LABORATORY DIRE CTOR: DL CALDERÓN M.D. CLIA NUMBER [id number] [place]. [id number]
[2021-08-08] MEDS ORDERED: LIDOCAINE 1% MPF 5 ML VIAL ONE (16:38)
--- NOTE | 2021-08-08 17:06 | ER ---
Nurse's Notes [facility] Name: Rachana Padilla Age: 41 yrs Sex: Female : 1980 Arrival Date: 08/08/2021 Time: 14:50 Bed 30 Private MD: Diagnosis: Cutaneous abscess of groin Presentation: 08/08 15:04 Chief complaint: Patient states: "I have a mass that is right between my leg and my jd3 vagina. it came up last night, but quickly got bad today.". Coronavirus screen: At this time, the client does not indicate any symptoms associated with coronavirus-19. Ebola Screen: No symptoms or risks identified at this time. Initial Sepsis Screen: Does the patient meet any 2 criteria? No. Patient's initial sepsis screen is negative. Does the patient have a suspected source of infection? No. Patient's initial sepsis screen is negative. Risk Assessment: Do you want to hurt yourself or someone else? Patient reports no desire to harm self or others. Onset of symptoms was August 08, 2021. 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 Flu vaccine is not up to date. - Social history:: Smoking status: Reported history of juuling and/or vaping. Screenin:15 Abuse screen: Denies threats or abuse. Nutritional screening: No deficits noted. jb4 Tuberculosis screening: No symptoms or risk factors identified. Fall Risk None identified. Assessment: 15:15 General: Appears in no apparent distress. comfortable, Behavior is calm, cooperative, jb4 appropriate for age, Pt reports mass in the groin between the legs.. Pain: Complains of pain in groin Pain does not radiate. Pain currently is 4 out of 10 on a pain scale. Neuro: Level of Consciousness is awake, alert, obeys commands, Oriented to person, place, time, situation. Cardiovascular: Patient's skin is warm and dry. Respiratory: Airway is patent Respiratory effort is even, unlabored, Respiratory pattern is regular, symmetrical. GI: No signs and/or symptoms were reported involving the gastrointestinal system. : No signs and/or symptoms were reported regarding the genitourinary system. EENT: No signs and/or symptoms were reported regarding the EENT system. Derm: Skin is intact, Skin is pink, warm \\T\\ dry. Musculoskeletal: Circulation, motion, and sensation intact. Range of motion: intact in all extremities. 17:23 Reassessment: Patient appears in no apparent distress at this time. Patient and/or jb4 family updated on plan of care and expected duration. Pain level reassessed. Patient is alert, oriented x 3, equal unlabored respirations, skin warm/dry/pink. Vital Signs: 15:06 BP 129 / 88; Pulse 89; Resp 18 S; Temp 98.1(TE); Pulse Ox 98% on R/A; Weight 80.74 kg jd3 (R); Height 5 ft. 6 in. (167.64 cm) (R); Pain 4/10; 15:06 Body Mass Index 28.73 (80.74 kg, 167.64 cm) jd3 ED Course: 14:50 Patient arrived in ED. am2 15:02 Hakan Hamilton MD is Attending Physician. kdr 15:05 Triage completed. jd3 15:07 Arm band placed on. jd3 15:15 Patient has correct armband on for positive identification. Bed in low position. Call jb4 light in reach. Side rails up X 1. Pulse ox on. NIBP on. 16:13 John Mancia, RN is Primary Nurse. jb4 17:16 Assist provider with I \\T\\ D: of an abscess on perineal Set up I\\T\\D tray. Performed by jazlyn Hamilton MD Dressing with 4X4s, tape Patient tolerated well. 17:23 Patient did not have IV access during this emergency room visit. jb4 Administered Medications: No medications were administered Outcome: 17:06 Discharge ordered by . kdr 17:23 Discharged to home ambulatory. jb4 17:23 Condition: stable 17:23 Discharge instructions given to patient, Instructed on discharge instructions, follow up and referral plans. medication usage, Demonstrated understanding of instructions, follow-up care, medications, Prescriptions given X 1. 17:25 Patient left the ED. jb4 Signatures: Hakan Hamilton MD MD [facility] John Mancia RN RN jb4 April Ruffin Jonathon, RN RN jd3 Yari Taylor
--- NOTE | 2021-08-08 17:06 | EDPHYS ---
Physician Documentation [facility] Name: Rachana Padilla Age: 41 yrs Sex: Female : 1980 Arrival Date: 08/08/2021 Time: 14:50 Bed 30 Private MD: ED Physician Hakan Hamiltno HPI: 08/08 17:42 This 41 yrs old Female presents to ER via Ambulatory with complaints of Skin Problem, kdr Groin Pain. 17:42 The patient presents with an abscess of the , The patient presents with cellulitis of kdr the right femoral area. Description: The affected area is small, irregular, swollen, tense. Onset: The symptoms/episode began/occurred yesterday. Possible cause(s): unknown. Associated signs and symptoms: The patient has no apparent associated signs or symptoms. Modifying factors: the symptoms are alleviated by nothing, the symptoms are aggravated by pressure, sitting, squeezing the lesion and expressing the contents, touching. Severity of symptoms: At their worst the symptoms were mild, in the emergency department the symptoms are unchanged. The patient has experienced a previous episode, approximately 1.5 years ago. The patient has not recently seen a physician. 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 Flu vaccine is not up to date. - Social history:: Smoking status: Reported history of juuling and/or vaping. ROS: 17:42 Constitutional: Negative for fever, chills, and weight loss, Eyes: Negative for injury, kdr pain, redness, and discharge, Neck: Negative for injury, pain, and swelling, Cardiovascular: Negative for chest pain, palpitations, and edema, Respiratory: Negative for shortness of breath, cough, wheezing, and pleuritic chest pain, Abdomen/GI: Negative for abdominal pain, nausea, vomiting, diarrhea, and constipation, Back: Negative for injury and pain, : Negative for injury, bleeding, discharge, and swelling, MS/Extremity: Negative for injury and deformity, Neuro: Negative for headache, weakness, numbness, tingling, and seizure activity. Psych: Negative for depression, anxiety, suicide ideation, homicidal ideation, and hallucinations, Allergy/Immunology: Negative for hives, rash, and allergies, Endocrine: Negative for neck swelling, polydipsia, polyuria, polyphagia, and marked weight changes, Hematologic/Lymphatic: Negative for swollen nodes, abnormal bleeding, and unusual bruising. 17:42 Skin: Positive for abscess, cellulitis, swelling. Exam: 17:42 Constitutional: This is a well developed, well nourished patient who is awake, alert, kdr and in no acute distress. Head/Face: Normocephalic, atraumatic. Eyes: Pupils equal round and reactive to light, extra-ocular motions intact. Lids and lashes normal. Conjunctiva and sclera are non-icteric and not injected. Cornea within normal limits. Periorbital areas with no swelling, redness, or edema. Neck: Trachea midline, no thyromegaly or masses palpated, and no cervical lymphadenopathy. Supple, full range of motion without nuchal rigidity, or vertebral point tenderness. No Meningismus. Chest/axilla: Normal chest wall appearance and motion. Nontender with no deformity. No lesions are appreciated. 17:42 Skin: abscess, that is small, of the right femoral area. Vital Signs: 15:06 BP 129 / 88; Pulse 89; Resp 18 S; Temp 98.1(TE); Pulse Ox 98% on R/A; Weight 80.74 kg jd3 (R); Height 5 ft. 6 in. (167.64 cm) (R); Pain 4/10; 15:06 Body Mass Index 28.73 (80.74 kg, 167.64 cm) jd3 Procedures: 17:42 I \T\ D: Incision and drainage was performed for an abscess of the right right femoral kdr area Prepped with Betadine, Anesthetized with 2 ml's 1% Lidocaine. Incised with #11 blade. Drained small amount purulent fluid. Packed with sterile gauze, Dressing: sterile 4x4 gauze, the patient tolerated the procedure well. MDM: 17:06 Patient medically screened. kdr 17:42 Data reviewed: vital signs, nurses notes. Counseling: I had a detailed discussion with kdr the patient and/or guardian regarding: the historical points, exam findings, and any diagnostic results supporting the discharge/admit diagnosis, lab results. Administered Medications: No medications were administered Disposition Summary: 08/08/21 17:06 Discharge Ordered Location: Home kdr Problem: new kdr Symptoms: have improved kdr Condition: Stable kdr Diagnosis - Cutaneous abscess of groin kdr Followup: kdr - With: Private Physician - When: 2 - 3 days - Reason: Wound Recheck, If symptoms return, Recheck today's complaints, Continuance of care, Re-evaluation by your physician Discharge Instructions: - Discharge Summary Sheet kdr - Incision and Drainage kdr - Skin Abscess, [id number] kdr - Incision and Drainage, Care After kdr - Percutaneous Abscess Drain Placement, Care After kdr Forms: - Medication Reconciliation Form kdr - Thank You Letter kdr - Antibiotic Education kdr - Work release form jb4 Prescriptions: - Bactrim DS 800-160 mg Oral Tablet - take 1 tablet by ORAL route every 12 hours for 10 days; 20 tablet; Refills: 0, kdr Product Selection Permitted Signatures: Hakan Hamilton MD MD kdr Davies, Jonathon RN RN jd3
[2021-08-09 02:16] VITALS: BP 129/88; TEMP 98.1; O2SAT 98
== END 2021-08-08 17:25 | disposition home or self-care (01) ==
LOC: ER 14:49
PROC: 0H9HXZZ Drainage of Right Upper Leg Skin, External Approach (ICD-10-PCS; principal; 2021-08-08)
DX: L02.214 Cutaneous abscess of groin (principal); Z88.6 Allergy status to analgesic agent
CPT/HCPCS: 99283